=== PATIENT | female | born 2000 | race Hispanic/Latino ===

== ENCOUNTER 2020-05-04 20:02 | Emergency (ER) | payer BC, OTHER, SELFPAY ==
[2020-05-04 21:33] LABS: Urine Blood NEGATIVE (NEG); Urine Glucose NEGATIVE (NEG); Urine Protein NEGATIVE (NEG); Urine Specific Gravity 1.015 (1.005-1.030)
[2020-05-04] MEDS ORDERED: FAMOTIDINE 20 MG/2 ML VIAL IV ONE (21:48)
[2020-05-04] MEDS ORDERED: ONDANSETRON 4 MG/2 ML VIAL ONE (21:48)
[2020-05-04] MEDS ORDERED: NA CHLORIDE 0.9% 1,000 ML ONE (21:48)
[2020-05-04] MEDS ORDERED: MORPHINE 2 MG/ML SYR ONE ×2 (21:48→23:23)
[2020-05-04 22:07] LABS: Absolute Lymphocytes (CBC) 0.4 K/uL (0.7-4.9); Basophils % 0.1 % (0-1.3); Lymphocytes % 3.1 % (15.3-44.8); MPV 9.8 fL (7.6-11.3); RBC Red Blood Cell Count 4.25 M/uL (3.86-4.86)
[2020-05-04 22:22] LABS: ALT/SGPT 17 U/L (12-78); AST/SGOT 16 U/L (15-37); Albumin 4.2 g/dL (3.4-5.0); Alkaline Phosphatase 77 U/L (45-117); BUN Blood Urea Nitrogen 13 mg/dL (7-18); Bicarbonate 24 mmol/L (21-32); Bilirubin Direct 0.2 mg/dL (0-0.2); Glucose Level 94 mg/dL (74-106); Lipase 64 U/L (73-393); Potassium 3.7 mmol/L (3.5-5.1); Protein, Total 8.3 g/dL (6.4-8.2); Sodium Level 138 mmol/L (136-145)
[2020-05-04 22:54] LABS: Blood Morphology Comment NOT SEEN (NOT SEEN); Platelet Estimate ADEQ
--- NOTE | 2020-05-05 03:02 | EDPHYS ---
Physician Documentation [facility] Name: Sujata Kasper Age: 20 yrs Sex: Female : 2000 Arrival Date: 05/04/2020 Time: 20:09 Bed 23 Private MD: ED Physician James Lind HPI: 05/04 21:39 This 20 yrs old Female presents to ER via Ambulatory with complaints of mh7 Nausea, Diarrhea, Abdominal Pain, Fever. 21:39 The patient presents with abdominal pain in the periumbilical area. Onset: The mh7 symptoms/episode began/occurred this morning. The symptoms do not radiate. Associated signs and symptoms: Pertinent positives: nausea, vomiting, and diarrhea, nausea and vomiting, diarrhea, nausea, vomiting, Pertinent negatives: anorexia, blood in stools, chest pain, constipation, dysuria, fever, headache, hematuria, palpitations, shortness of breath, vaginal discharge, vomiting blood. The symptoms are described as crampy, intermittent, waxing/waning. Modifying factors: The symptoms are alleviated by nothing, the symptoms are aggravated by nothing. Severity of pain: At its worst the pain was moderate today, in the emergency department the pain has improved moderately. Ate food from a restaurant last night then started having symptoms this morning.. 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 - Social history:: Smoking status: Patient denies any tobacco usage or history of. ROS: 21:39 Constitutional: Negative for fever, chills, and weight loss, Eyes: Negative for injury, mh7 pain, redness, and discharge, ENT: Negative for injury, pain, and discharge, Neck: Negative for injury, pain, and swelling, Cardiovascular: Negative for chest pain, palpitations, and edema, Respiratory: Negative for shortness of breath, cough, wheezing, and pleuritic chest pain, Back: Negative for injury and pain, : Negative for injury, bleeding, discharge, and swelling, MS/Extremity: Negative for injury and deformity, Skin: Negative for injury, rash, and discoloration, Neuro: Negative for headache, weakness, numbness, tingling, and seizure, Psych: Negative for depression, anxiety, suicide ideation, homicidal ideation, and hallucinations, Allergy/Immunology: Negative for hives, rash, and allergies, Endocrine: Negative for neck swelling, polydipsia, polyuria, polyphagia, and marked weight changes, Hematologic/Lymphatic: Negative for swollen nodes, abnormal bleeding, and unusual bruising. Exam: 21:39 Constitutional: This is a well developed, well nourished patient who is awake, alert, mh7 and in no acute distress. Head/Face: Normocephalic, atraumatic. Eyes: Pupils equal round and reactive to light, extra-ocular motions intact. Lids and lashes normal. Conjunctiva and sclera are non-icteric and not injected. Cornea within normal limits. Periorbital areas with no swelling, redness, or edema. Neck: Trachea midline, no thyromegaly or masses palpated, and no cervical lymphadenopathy. Supple, full range of motion without nuchal rigidity, or vertebral point tenderness. No Meningismus. Chest/axilla: Normal chest wall appearance and motion. Nontender with no deformity. No lesions are appreciated. 21:39 Respiratory: Lungs have equal breath sounds bilaterally, clear to auscultation and percussion. No rales, rhonchi or wheezes noted. No increased work of breathing, no retractions or nasal flaring. 21:39 Back: No spinal tenderness. No costovertebral tenderness. Full range of motion. Skin: Warm, dry with normal turgor. Normal color with no rashes, no lesions, and no evidence of cellulitis. MS/ Extremity: Pulses equal, no cyanosis. Neurovascular intact. Full, normal range of motion. Neuro: Awake and alert, GCS 15, oriented to person, place, time, and situation. Cranial nerves II-XII grossly intact. Motor strength 5/5 in all extremities. Sensory grossly intact. Cerebellar exam normal. Normal gait. Psych: Awake, alert, with orientation to person, place and time. Behavior, mood, and affect are within normal limits. 21:39 Cardiovascular: Rate: tachycardic, Rhythm: regular, Pulses: no pulse deficits are appreciated, Heart sounds: normal, normal S1and S2, Edema: is not appreciated, JVD: is not appreciated. 21:39 Abdomen/GI: Inspection: abdomen appears normal, Bowel sounds: normal, in all quadrants, Palpation: moderate abdominal tenderness, in the umbilical area, left upper quadrant and left lower quadrant, rebound tenderness, is not appreciated, voluntary guarding, is not appreciated, involuntary guarding, is not appreciated, no appreciated organomegaly, Rectal exam: the exam is deferred, because of patient request, Indicators: McBurney's point is not tender, Robert's sign is negative, Rovsing's sign is negative, Obturator sign is negative, Psoas sign is negative, Liver: no appreciated palpable abnormalities, Hernia: not appreciated. Vital Signs: 20:44 BP 115 / 77; Pulse 116; Resp 18; Temp 99.6; Pulse Ox 100% on R/A; Weight 44.45 kg; iw Height 5 ft. 2 in. (157.48 cm); Pain 10/10; 22:45 BP 106 / 59; Pulse 91; Resp 18; Temp 98.1(O); Pulse Ox 100% on R/A; Pain 6/10; fu 03/08 00:30 BP 95 / 49; Pulse 83; Resp 16; Pulse Ox 99% on R/A; Pain 6/10; fu 00:30 BP 93 / 45; Pulse 76; Resp 16; Pulse Ox 98% ; Pain 0/10; fu 01:15 BP 100 / 57; Pulse 85; Resp 16; Pulse Ox 100% on R/A; Pain 0/10; fu 02:45 BP 102 / 58; Pulse 78; Resp 18; Pulse Ox 99% on R/A; Pain 0/10; fu 03:00 BP 102 / 61; Pulse 87; Resp 16; Pulse Ox 100% on R/A; Pain 0/10; fu 03/07 20:44 Body Mass Index 17.92 (44.45 kg, 157.48 cm) iw MDM: 03:00 Differential diagnosis: appendicitis, bowel obstruction, cholecystitis, Cholelithiasis, mh7 diverticulitis, Ectopic , gastritis, gastroesophageal reflux disease, non-specific abd pain, pancreatitis, Peptic Ulcer Disease, Ureterolithiasis, urinary tract infection. Data reviewed: vital signs, nurses notes, lab test result(s), CBC, electrolytes, urinalysis, UPT: negative radiologic studies, CT scan. Data interpreted: Pulse oximetry: on room air is 99 %. Interpretation: normal. Counseling: I had a detailed discussion with the patient and/or guardian regarding: the historical points, exam findings, and any diagnostic results supporting the discharge/admit diagnosis, lab results, radiology results, the need for outpatient follow up, to return to the emergency department if symptoms worsen or persist or if there are any questions or concerns that arise at home. Response to treatment: the patient's symptoms have resolved after treatment, the patient's blood pressure is in an acceptable range, mental status has returned to baseline, the patient no longer shows bradycardia, the patient is not short of breath, the patient is not tachycardic, the patient's pain is gone, the patient's temperature has normalized. 03:02 Patient medically screened. [facility] 05/04 21:15 Order name: Urine --Ancillary (enter results) [facility] 05/04 21:15 Order name: Urine Dipstick--Ancillary (enter results) [facility] 05/04 21:27 Order name: Basic Metabolic Panel [facility] 05/04 21:27 Order name: CBC with Diff [facility] 05/04 21:27 Order name: Hepatic Function [facility] 05/04 21:27 Order name: Lipase [facility] 05/04 21:34 Order name: Urine --Ancillary; Complete Time: 22:13 [facility] 05/04 21:34 Order name: Urine Dipstick-Ancillary; Complete Time: 22:13 [facility] 05/04 22:11 Order name: CBC with Automated Diff; Complete Time: 23:53 [facility] 05/04 22:13 Order name: CT Abd/Pelvis - IV Contrast Only [facility] 05/04 22:22 Order name: Basic Metabolic Panel; Complete Time: 23:53 [facility] 05/04 22:22 Order name: Liver (Hepatic) Function; Complete Time: 23:53 [facility] 05/04 22:22 Order name: Lipase; Complete Time: 23:53 [facility] 05/04 22:54 Order name: Manual Differential; Complete Time: 23:53 [facility] 05/04 21:13 Order name: Urine Dipstick-Ancillary (obtain specimen); Complete Time: 21:13 [facility] 05/04 21:13 Order name: Urine Test (obtain specimen); Complete Time: 21:13 [facility] 05/04 21:27 Order name: IV Saline Lock; Complete Time: 21:52 mh7 05/04 21:27 Order name: Labs collected and sent; Complete Time: 21:52 mh7 Administered Medications: 05/04 21:52 Drug: NS 0.9% 1000 ml Route: IV; Rate: 1000 ml; Site: left antecubital; fu 22:37 Follow up: Response: No adverse reaction; IV Intake: 1000ml fu :53 Drug: morphine 2 mg Route: IVP; Site: left antecubital; fu 22:37 Follow up: Response: Pain is decreased fu 21:53 Drug: Zofran (Ondansetron) 4 mg Route: IVP; Infused Over: 2 mins; Site: left fu antecubital; 22:37 Follow up: Response: Nausea is decreased fu :53 Drug: Pepcid 20 mg Route: IVP; Site: left antecubital; fu 22:38 Follow up: Response: No adverse reaction fu 23:10 Drug: morphine 2 mg Route: IVP; Site: left antecubital; fu 05/05 00:42 Follow up: Response: Pain is decreased fu 03:01 Drug: Cipro 500 mg Route: PO; fu 03:20 Follow up: Response: No adverse reaction fu Disposition: 05/05/20 03:02 Discharged to Home. Impression: Gastroenteritis. - Condition is Stable. - Discharge Instructions: Viral Gastroenteritis, Adult, [id number]. - Prescriptions for Zofran ODT 4 mg Oral tablet,disintegrating - place 1 tablet by TRANSLINGUAL route every 8 hours As needed; 6 tablet. Bentyl 20 mg Oral Tablet - take 1 tablet by ORAL route every 6 hours As needed; 20 tablet. Pepcid 20 mg Oral Tablet - take 1 tablet by ORAL route every 12 hours for 5 days; 10 tablet. Cipro 500 mg Oral Tablet - take 1 tablet by ORAL route every 12 hours for 5 days; 10 tablet. - Family Work Release, Medication Reconciliation Form, Thank You Letter, Antibiotic Education, Prescription Opioid Use form. - Follow up: Private Physician; When: 1 - 2 days; Reason: Worsening of condition, Recheck today's complaints, Continuance of care, Re-evaluation by your physician. Follow up: Grayson Montgomery MD; When: 1 - 2 days; Reason: If symptoms return, Worsening of condition. - Problem is new. - Symptoms have improved. Signatures: Dispatcher [employer] Rosalina Ruvalcaba, RN RN Maksim Rosenthal, RN James Cuevas MD MD [facility] Alfonso, Presley tt3 Corrections: (The following items were deleted from the chart) 03:28 03:02 05/05/2020 03:02 Discharged to Home. Impression: Gastroenteritis. Condition is fu Stable. Forms are Medication Reconciliation Form, Thank You Letter, Antibiotic Education, Prescription Opioid Use. Follow up: Private Physician; When: 1 - 2 days; Reason: Worsening of condition, Recheck today's complaints, Continuance of care, Re-evaluation by your physician. Follow up: Grayson Montgomery; When: 1 - 2 days; Reason: If symptoms return, Worsening of condition. Problem is new. Symptoms have improved. 7
--- NOTE | 2020-05-05 03:02 | ER ---
Nurse's Notes [facility] Name: Sujata Kasper Age: 20 yrs Sex: Female : 2000 Arrival Date: 05/04/2020 Time: 20:09 Bed 23 Private MD: Diagnosis: Gastroenteritis Presentation: 05/04 20:44 Chief complaint: Patient states: woke up this morning with mid abd pain and had iw diarrhea, vomited after eating soup, has just been very nauseous since this morning, is able to tolerate water, still having a lot of belly pain , worse when she walks. Coronavirus screen: fever, vomiting. Ebola Screen: Patient negative for fever greater than or equal to 101.5 degrees Fahrenheit, and additional compatible Ebola Virus Disease symptoms Patient denies exposure to infectious person. Patient denies travel to an Ebola-affected area in the 21 days before illness onset. No symptoms or risks identified at this time. Initial Sepsis Screen: Does the patient meet any 2 criteria? No. Patient's initial sepsis screen is negative. Does the patient have a suspected source of infection? No. Patient's initial sepsis screen is negative. Risk Assessment: Do you want to hurt yourself or someone else? Patient reports no desire to harm self or others. Onset of symptoms was May 04, 2020. 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 - Social history:: Smoking status: Patient denies any tobacco usage or history of. Screenin:01 Abuse screen: Denies threats or abuse. Nutritional screening: No deficits noted. fu Tuberculosis screening: No symptoms or risk factors identified. Fall Risk None identified. Assessment: 21:00 General: Appears uncomfortable, Behavior is calm, cooperative, appropriate for age, fu Denies fever, fatigue, chills. Pain: Complains of pain in left lower quadrant and left upper quadrant and umbilical area Pain currently is 8 out of 10 on a pain scale. Quality of pain is described as crampy, Pain began 1 day ago. 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 Gait is steady, Speech is normal, Facial symmetry appears normal. Cardiovascular: Denies chest pain. Respiratory: Respiratory effort is even, unlabored, Respiratory pattern is regular. GI: Abdomen is flat, Reports lower abdominal pain, upper abdominal pain, diarrhea, nausea, vomiting, since this morning. : No signs and/or symptoms were reported regarding the genitourinary system. EENT: No signs and/or symptoms were reported regarding the EENT system. 22:37 Reassessment: Patient and/or family updated on plan of care and expected duration. Pain fu level reassessed. Patient is alert, oriented x 3, equal unlabored respirations, skin warm/dry/pink. Patient states feeling better. Patient states symptoms have improved. 05/05 00:46 Reassessment: Patient appears in no apparent distress at this time. Patient and/or fu family updated on plan of care and expected duration. Pain level reassessed. Patient is alert, oriented x 3, equal unlabored respirations, skin warm/dry/pink. Patient denies pain at this time. Patient states symptoms have improved. 02:00 Reassessment: No changes from previously documented assessment. Patient and/or family fu updated on plan of care and expected duration. Pain level reassessed. Patient is alert, oriented x 3, equal unlabored respirations, skin warm/dry/pink. 02:58 Reassessment: Dr. Lind in patient room talking to patient. fu Vital Signs: 05/04 20:44 BP 115 / 77; Pulse 116; Resp 18; Temp 99.6; Pulse Ox 100% on R/A; Weight 44.45 kg; iw Height 5 ft. 2 in. (157.48 cm); Pain 10/10; 22:45 BP 106 / 59; Pulse 91; Resp 18; Temp 98.1(O); Pulse Ox 100% on R/A; Pain 6/10; fu 05/05 00:30 BP 95 / 49; Pulse 83; Resp 16; Pulse Ox 99% on R/A; Pain 6/10; fu 00:30 BP 93 / 45; Pulse 76; Resp 16; Pulse Ox 98% ; Pain 0/10; fu 01:15 BP 100 / 57; Pulse 85; Resp 16; Pulse Ox 100% on R/A; Pain 0/10; fu 02:45 BP 102 / 58; Pulse 78; Resp 18; Pulse Ox 99% on R/A; Pain 0/10; fu 03:00 BP 102 / 61; Pulse 87; Resp 16; Pulse Ox 100% on R/A; Pain 0/10; fu 0307 20:44 Body Mass Index 17.92 (44.45 kg, 157.48 cm) iw ED Course: 05/04 20:09 Patient arrived in ED. es 20:47 Triage completed. iw 20:47 Arm band placed on. iw 21:05 Maksim Sosa, SHANDA is Primary Nurse. fu 21:09 James Lind MD is Attending Physician. 7 21:35 Inserted saline lock: 20 gauge in left antecubital area, using aseptic technique. Blood fu collected. 21:52 Basic Metabolic Panel Sent. fu 21:52 CBC with Diff Sent. fu 21:52 Hepatic Function Sent. fu 21:52 Lipase Sent. fu 23:01 Patient has correct armband on for positive identification. Bed in low position. Call fu light in reach. Side rails up X 1. Pulse ox on. NIBP on. 05/05 00:42 Urine Dipstick--Ancillary (enter results) Sent. fu 00:42 Urine --Ancillary (enter results) Sent. fu 01:25 CT Abd/Pelvis - IV Contrast Only In Process Unspecified. EDMS 03:01 Grayson Montgomery MD is Referral Physician. [facility] 03:20 No provider procedures requiring assistance completed. IV discontinued, bleeding fu controlled, Pressure dressing applied. Administered Medications: 05/04 21:52 Drug: NS 0.9% 1000 ml Route: IV; Rate: 1000 ml; Site: left antecubital; fu 22:37 Follow up: Response: No adverse reaction; IV Intake: 1000ml fu 21:53 Drug: morphine 2 mg Route: IVP; Site: left antecubital; fu 22:37 Follow up: Response: Pain is decreased fu 21:53 Drug: Zofran (Ondansetron) 4 mg Route: IVP; Infused Over: 2 mins; Site: left fu antecubital; 22:37 Follow up: Response: Nausea is decreased fu 21:53 Drug: Pepcid 20 mg Route: IVP; Site: left antecubital; fu 22:38 Follow up: Response: No adverse reaction fu 23:10 Drug: morphine 2 mg Route: IVP; Site: left antecubital; fu 0308 00:42 Follow up: Response: Pain is decreased fu 03:01 Drug: Cipro 500 mg Route: PO; fu 03:20 Follow up: Response: No adverse reaction fu Intake: 05/04 22:37 IV: 1000ml; Total: 1000ml. fu Outcome: 05/05 03:02 Discharge ordered by mh7 03:20 Discharged to home ambulatory, with friend. fu 03:20 Condition: stable 03:20 Discharge instructions given to patient, Instructed on discharge instructions, follow up and referral plans. Demonstrated understanding of instructions, follow-up care, medications, Prescriptions given X 4. 03:28 Patient left the ED. fu Signatures: Dispatcher [employer] Yesenia Allan Irene, RN RN iw Umadhay, Felix, RN RN fu Holmes, Maurice, MD MD mh7
[2020-05-05] MEDS ORDERED: CIPROFLOXACIN HCL 500 MG TAB ONE (03:16)
[2020-05-05 03:38] VITALS: TEMP 98.1
[2020-05-05 03:44] VITALS: BP 102/61; O2SAT 100
--- NOTE | 2020-05-05 12:24 | RAD REPORT ---
EXAM DESCRIPTION: CT - Abdomen Pelvis W Contrast - 05/05/2020 5:04 am CLINICAL HISTORY: The patient is 20 years old and is Female; Abd pain;Nausea / vomiting TECHNIQUE: Axial computed tomography images of the abdomen and pelvis with intravenous contrast. S agittal and coronal reformatted images were created and reviewed. This CT exam was performed using one or more of the following dose reduction techniques: automated exposure control, adjustment of t he mA and/or kV according to patient size, and/or use of iterative reconstruction technique. DLP: 645 mGy*cm COMPARISON: None. FINDINGS: LUNG BASES: Lung bases are clear. HEART: Visualized heart is normal. ABDOMEN: LIVER: Unremarkable. No mass. GALLBLADDER AND BILE DUCTS: Unremarkable. No calcified stones. No ductal dilation. PANCREAS: Unremarkable. No mass. No ductal dilation. SPLEEN: Unremarkable. No splenomegaly. ADRENALS: Unremarkable. No mass. KIDNEYS AND URETERS: Unremarkable. No solid mass. No hydronephrosis. STOMACH AND BOWEL: Unremarkable. No obstruction. No mucosal thickening. PELVIS: APPENDIX: No findings to suggest acute appendicitis. BLADDER: Bladder is decompressed. REPRODUCTIVE: Prominent lower uterine segment left cervix. ABDOMEN and PELVIS: INTRAPERITONEAL SPACE: Right ovarian corpus luteal cyst measuring 3.4 cm. Moderate amount of free p elvic fluid, likely physiologic. No free air. BONES/JOINTS: No acute fracture. No dislocation. SOFT TISSUES: Unremarkable. VASCULATURE: Unremarkable. No abdominal aortic aneurysm. LYMPH NODES: Unremarkable. No enlarged lymph nodes. IMPRESSION: 1. No acute abdominal or pelvic abnormality. 2. Right ovarian corpus luteal cyst measuring 3.4 cm. Moderate amount of free pelvic fluid, likely physiologic. Recommend pelvic US f/u in 6-12 wks. If resolved/smaller, no further f/u is needed. If s table/larger, continue pelvic US f/u or consider pelvic MRI w/IV contrast. Reference: US recommendations based on Radiology 2010 Sep;256(3):943-54; CT/MR recommendations based on J Am Arun Radiol 2013;10:675-681. Electronically signed by: Nikko Bone DO 05/05/2020 1:47 AM CALL CIRCUIT WORKER Due to temporary technical issues with the PACS/Fluency reporting system, reports are being signed by the in house radiologists without review as a courtesy to insure prompt reporting. The interpreting radiologist is fully responsible for the content of the report.
== END 2020-05-05 03:28 | disposition home or self-care (01) ==
LOC: ER 20:02
DX: K52.9 Noninfective gastroenteritis and colitis, unspecified (principal)
CPT/HCPCS: 36415; 74177; 80048; 80076; 81003; 81025; 83690; 85025; 96374; 96375; 99284; J2270; J2405; J7030; Q9967

== ENCOUNTER 2020-08-04 21:17 | Emergency (ER) | payer SELFPAY ==
[2020-08-04 21:57] LABS: Urine Blood 3+ (Negative); Urine Glucose Negative (Negative); Urine Protein 3+ (Negative); Urine Specific Gravity >=1.030 (1.005-1.030)
--- NOTE | 2020-08-04 22:01 | ER ---
Nurse's Notes [facility] Name: Sujata Kasper Age: 20 yrs Sex: Female : 2000 Arrival Date: 08/04/2020 Time: 21:21 Bed Waiting Private MD: Diagnosis: Urinary tract infection, site not specified Presentation: 08/04 21:42 Chief complaint: Patient states: Suprapubic pain, burning with urination, urinary ca1 urgency and frequency x 3 days. Denies fever. Coronavirus screen: Client denies travel out of the [place] in the last 14 days. At this time, the client does not indicate any symptoms associated with coronavirus-19. Ebola Screen: Patient negative for fever greater than or equal to 101.5 degrees Fahrenheit, and additional compatible Ebola Virus Disease symptoms Patient denies exposure to infectious person. Patient denies travel to an Ebola-affected area in the 21 days before illness onset. No symptoms or risks identified at this time. Initial Sepsis Screen: Does the patient meet any 2 criteria? No. Patient's initial sepsis screen is negative. Does the patient have a suspected source of infection? No. Patient's initial sepsis screen is negative. Risk Assessment: Do you want to hurt yourself or someone else? Patient reports no desire to harm self or others. Onset of symptoms was August 04, 2020. 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 Flu vaccine is up to date. - Social history:: Smoking status: Patient denies any tobacco usage or history of. Screenin:08 Abuse screen: Denies threats or abuse. Denies injuries from another. Nutritional ss screening: No deficits noted. Tuberculosis screening: Never had TB. Fall Risk None identified. Assessment: 22:08 General: Appears in no apparent distress. comfortable, Behavior is calm, cooperative. ss Pain: Complains of pain in suprapubic area Pain currently is 7 out of 10 on a pain scale. Neuro: Level of Consciousness is awake, alert, obeys commands. Respiratory: Respiratory effort is even, unlabored. GI: Bowel sounds present X 4 quads. Abdomen is tender to palpation in suprapubic area Patient currently denies diarrhea, nausea, vomiting. : Reports burning with urination, since x3 days. Derm: Skin is intact, is healthy with good turgor, Skin is dry, Skin is pink, warm \T\ dry. normal. Vital Signs: 21:42 BP 121 / 85; Pulse 63; Resp 16 S; Temp 97.9(TE); Pulse Ox 98% on R/A; Weight 44.45 kg; ca1 Height 5 ft. 2 in. (157.48 cm) (R); Pain 7/10; 21:42 Body Mass Index 17.92 (44.45 kg, 157.48 cm) ca1 ED Course: 21:21 Patient arrived in ED. bp1 21:30 [facility]C [facility]. kb 21:30 Avi Iraheta MD is Attending Physician. kb 21:44 Triage completed. ca1 21:45 Arm band placed on right wrist. ca1 21:56 Urine Microscopic Only Sent. ca1 22:01 Brenda Saleh, SHANDA is Primary Nurse. ss 22:08 Patient has correct armband on for positive identification. Bed in low position. Call ss light in reach. 22:08 No provider procedures requiring assistance completed. Patient did not have IV access ss during this emergency room visit. Administered Medications: 22:01 Drug: Macrobid (nitrofurantoin) 100 mg Route: PO; ss 22:07 Follow up: Response: No adverse reaction; Medication administered at discharge. ss 22:02 Drug: Pyridium (phenazopyridine) 200 mg Route: PO; ss 22:08 Follow up: Response: Medication administered at discharge. ss Outcome: 22:00 Discharge ordered by . kb 22:08 Discharged to home ambulatory. ss 22:08 Condition: good 22:08 Discharge instructions given to patient, Instructed on discharge instructions, follow up and referral plans. medication usage, Demonstrated understanding of instructions, follow-up care, medications, Prescriptions given X 2. 22:09 Patient left the ED. ss Addendum: 08/08/2020 07:40 Addendum: Culture Results: Positive urine culture. No further action required. Bacteria e b sensitive to prescribed antibiotic. Signatures: Sera Iglesias, DAMION CORREA-Brenda Hernandez, SHANDA RN ss Chirsty Carpio Cheryl, RN RN ca1 Lo Donnelly
--- NOTE | 2020-08-04 22:01 | EDPHYS ---
Physician Documentation [facility] Name: Sujata Kasper Age: 20 yrs Sex: Female : 2000 Arrival Date: 08/04/2020 Time: 21:21 Bed Waiting Private MD: ED Physician Avi Iraheta HPI: 08/04 22:05 This 20 yrs old Female presents to ER via Ambulatory with complaints of kb Abdominal Pain, Pain With Urination. 22:05 The patient has not recently seen a physician. kb 22:05 The patient presents with urinary symptoms, dysuria, frequency, urgency. Onset: The kb symptoms/episode began/occurred 3 day(s) ago. Modifying factors: The symptoms are alleviated by nothing, the symptoms are aggravated by urinating. Associated signs and symptoms: Pertinent positives: dysuria, urinary frequency. Severity of symptoms: At their worst the symptoms were moderate, in the emergency department the symptoms are unchanged. The patient has not experienced similar symptoms in the past. Pt reports burning with urination, bladder discomfort, frequency and urgency that started 3 days ago. Denies fever. 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 Flu vaccine is up to date. - Social history:: Smoking status: Patient denies any tobacco usage or history of. ROS: 22:08 Constitutional: Negative for fever, chills, and weight loss. kb 22:08 Abdomen/GI: Positive for abdominal pain, of the suprapubic area. 22:08 : Positive for urinary symptoms, urinary frequency, small amounts, burning with urination. 22:08 All other systems are negative. Exam: 22:08 Constitutional: This is a well developed, well nourished patient who is awake, alert, kb and in no acute distress. Head/Face: Normocephalic, atraumatic. ENT: Moist Mucous membranes Respiratory: Respirations even and unlabored. No increased work of breathing, no retractions or nasal flaring. Abdomen/GI: Soft, non-tender. No distention Skin: Warm, dry with normal turgor. Normal color. MS/ Extremity: Pulses equal, no cyanosis. Neurovascular intact. Full, normal range of motion. Neuro: Awake and alert, GCS 15, oriented to person, place, time, and situation. Moves all extremities. Normal gait. Psych: Awake, alert, with orientation to person, place and time. Behavior, mood, and affect are within normal limits. Vital Signs: 21:42 BP 121 / 85; Pulse 63; Resp 16 S; Temp 97.9(TE); Pulse Ox 98% on R/A; Weight 44.45 kg; ca1 Height 5 ft. 2 in. (157.48 cm) (R); Pain 7/10; 21:42 Body Mass Index 17.92 (44.45 kg, 157.48 cm) ca1 MDM: 21:45 Patient medically screened. kb 22:08 Data reviewed: vital signs, nurses notes. Data interpreted: Pulse oximetry: on room air kb is 98 %. Interpretation: normal. Counseling: I had a detailed discussion with the patient and/or guardian regarding: the historical points, exam findings, and any diagnostic results supporting the discharge/admit diagnosis, lab results, the need for outpatient follow up, a family practitioner, to return to the emergency department if symptoms worsen or persist or if there are any questions or concerns that arise at home. 08/04 21:30 Order name: Urine Microscopic Only kb 08/04 21:57 Order name: Urine --Ancillary (enter results) mw2 08/04 21:30 Order name: Urine Test (obtain specimen); Complete Time: 21:56 kb 08/04 21:57 Order name: Urine Dipstick-Ancillary; Complete Time: 21:59 EDMS 08/04 21:30 Order name: Urine Dipstick-Ancillary (obtain specimen); Complete Time: 21:56 kb Administered Medications: 22:01 Drug: Macrobid (nitrofurantoin) 100 mg Route: PO; ss 22:07 Follow up: Response: No adverse reaction; Medication administered at discharge. ss 22:02 Drug: Pyridium (phenazopyridine) 200 mg Route: PO; ss 22:08 Follow up: Response: Medication administered at discharge. Disposition: 08/05 07:53 Co-signature as Attending Physician, Avi Iraheta MD I agree with the assessment and mary plan of care. Disposition: 08/04/20 22:00 Discharged to Home. Impression: Urinary tract infection, site not specified. - Condition is Stable. - Discharge Instructions: Urinary Tract Infection, Adult, [id number]. - Prescriptions for Pyridium 200 mg Oral Tablet - take 1 tablet by ORAL route every 8 hours for 3 days; 9 tablet. Macrobid 100 mg Oral Capsule - take 1 capsule by ORAL route every 12 hours for 10 days; 20 capsule. - Medication Reconciliation Form, Thank You Letter, Antibiotic Education, Prescription Opioid Use form. - Follow up: Emergency Department; When: As needed; Reason: Worsening of condition. Follow up: Private Physician; When: 2 - 3 days; Reason: Recheck today's complaints, Continuance of care, Re-evaluation by your physician. Signatures: Dispatcher [employer] EDSera Mckenzie, FISH PACKER-C FISH PACKER-Avi Peters MD MD cha Smirch, Shelby, RN RN ss Tricia Reyes RN RN [facility] Corrections: (The following items were deleted from the chart) 08/04 22:09 22:00 08/04/2020 22:00 Discharged to Home. Impression: Urinary tract infection, site ss not specified. Condition is Stable. Forms are Medication Reconciliation Form, Thank You Letter, Antibiotic Education, Prescription Opioid Use. Follow up: Emergency Department; When: As needed; Reason: Worsening of condition. Follow up: Private Physician; When: 2 - 3 days; Reason: Recheck today's complaints, Continuance of care, Re-evaluation by your physician. kb
[2020-08-04 22:13] LABS: Urine Specific Gravity/Preg >1.030 (1.005-1.030)
[2020-08-04 22:18] LABS: Urine Bacteria <20 /HPF (<20); Urine Mucus 1+ /HPF (NONE SEEN)
[2020-08-04] MEDS ORDERED: NITROFURAN MACRO 100 MG CAP PO ONE (22:23)
[2020-08-04] MEDS ORDERED: PHENAZOPYRIDINE 100MG TAB PO ONE (22:23)
[2020-08-04 22:24] VITALS: BP 121/85; TEMP 97.9; O2SAT 98
== END 2020-08-04 22:09 | disposition home or self-care (01) ==
LOC: ER 21:17
DX: N39.0 Urinary tract infection, site not specified (principal)
CPT/HCPCS: 81003; 81015; 81025; 87077; 87086; 87088; 87186; 99283

== ENCOUNTER 2022-03-21 15:17 | Emergency (ER) | payer SELFPAY ==
[2022-03-21] MEDS ORDERED: IBUPROFEN 400 MG TAB ONE (16:34)
--- NOTE | 2022-03-21 17:48 | RAD REPORT ---
EXAM DESCRIPTION: RAD - Knee Left 3 View - 03/21/2022 5:43 pm CLINICAL HISTORY: PAIN COMPARISON: No comparisons FINDINGS: Small suprapatellar joint effusion. No fracture or dislocation seen. Nonemergent MRI knee followup would be suggested.
--- NOTE | 2022-03-21 18:12 | EDPHYS ---
Physician Documentation [facility] Name: Sujata Kasper Age: 22 yrs Sex: Female : 2000 Arrival Date: 03/21/2022 Time: 15:20 Bed IW1 Private MD: ED Physician Mason Chapman HPI: 03/21 16:30 This 22 yrs old Female presents to ER via Ambulatory with complaints of Knee cp Pain - swelling. 16:30 The patient presents with pain, that is acute, swelling, tenderness. The complaints cp affect the left knee. Context: the patient can fully bear weight, the patient is able to ambulate, with moderate difficulty, Problem is a result from a previous injury: No. Onset: The symptoms/episode began/occurred yesterday, and became worse today. Modifying factors: the symptoms are aggravated by weight bearing. Associated signs and symptoms: Pertinent negatives calf tenderness, fever, warmth. Treatment prior to arrival includes: no previous treatment. Patient reports left knee pain since yesterday while attending wedding. Wore heels and was on feet for long period. No specific injury occurred and no previous injuries to knee. 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 - Social history:: Smoking status: Patient denies any tobacco usage or history of. ROS: 16:35 MS/extremity: Positive for pain, swelling, tenderness, of the left knee, Negative for cp injury or acute deformity, decreased range of motion, warmth. 16:35 Constitutional: Negative for body aches, chills, fever. cp 16:35 Neck: Negative for pain with movement, pain at rest. 16:35 Respiratory: Negative for cough, shortness of breath, wheezing. 16:35 Back: Negative for pain at rest, pain with movement. 16:35 Neuro: Negative for altered mental status, headache, numbness, tingling, weakness. 16:35 All other systems are negative. Exam: 16:40 Constitutional: The patient appears in no acute distress, alert, awake, non-toxic, well cp developed, well nourished. 16:40 Head/Face: Normocephalic, atraumatic. cp 16:40 Cardiovascular: Rate: normal, Pulses: Pulses are 2+ in left dorsalis pedis artery. cp 16:40 Respiratory: the patient does not display signs of respiratory distress, Respirations: cp normal, no use of accessory muscles, no retractions, labored breathing, is not present. 16:40 Musculoskeletal/extremity: Extremities: noted in the left knee: mild anterior infrapatellar swelling, tenderness noted medial and lateral joint line, no ROM restriction, overlying skin warm and dry, ROM: limited passive range of motion due to pain, in the left knee, Weight bearing: able to fully bear weight. Vital Signs: 16:06 BP 119 / 76; Pulse 76; Resp 16; Temp 97.9; Pulse Ox 100% ; Weight 46.27 kg; Height 5 vg1 ft. 2 in. (157.48 cm); Pain 6/10; 18:27 BP 115 / 72; Pulse 65; Resp 16; Pulse Ox 100% ; vg1 16:06 Body Mass Index 18.66 (46.27 kg, 157.48 cm) vg1 MDM: 16:13 Patient medically screened. cp 17:00 Differential diagnosis: closed fracture, tendonitis, effusion, less likely septic cp joint, gout. 18:10 Data reviewed: vital signs, nurses notes, radiologic studies, plain films. cp 18:10 I considered the following discharge prescriptions or medication management in the emergency department Medications were administered in the Emergency Department. See MAR. Test considered but Not performed: MRI: left knee. Counseling: I had a detailed discussion with the patient and/or guardian regarding: the historical points, exam findings, and any diagnostic results supporting the discharge/admit diagnosis, radiology results, the need for outpatient follow up, for definitive care, a orthopedic surgeon, to return to the emergency department if symptoms worsen or persist or if there are any questions or concerns that arise at home. Response to treatment: the patient's symptoms have mildly improved after treatment, and as a result, I will discharge patient. 03/21 16:23 Order name: XRAY Knee LEFT 3 view; Complete Time: 18:01 03/21 18:05 Order name: Ramon wrap-joint; Complete Time: 18:17 cp 03/21 18:05 Order name: Crutches; Complete Time: 18:17 cp Administered Medications: 16:40 Drug: Ibuprofen 400 mg Route: PO; jl7 18:17 Follow up: Response: No adverse reaction; Marked relief of symptoms vg1 Disposition Summary: 03/21/22 18:11 Discharge Ordered Location: Home cp Problem: new cp Symptoms: have improved cp Condition: Stable cp Diagnosis - Pain in left knee cp Followup: cp - With: Elmer Flood MD - When: 2 - 3 days - Reason: Recheck today's complaints Discharge Instructions: - Discharge Summary Sheet cp - Elastic Bandage and RICE Therapy cp - How to Use a Knee Brace cp - Acute Knee Pain, Adult cp - Form - Excuse from Work, School, or Physical Activity cp Forms: - Medication Reconciliation Form cp - Thank You Letter cp - Antibiotic Education cp - Prescription Opioid Use cp - Work release form vg1 Prescriptions: - Ibuprofen 800 mg Oral Tablet - take 0.5 tablet by ORAL route every 8 hours As needed take with food; 30 cp tablet; Refills: 0, Product Selection Permitted Addendum: 03/23/2022 01:06 Co-signature as Attending Physician, Mason Chapman MD I reviewed the patient's care r n provided by the Advanced Practice Provider and agree with the diagnosis and treatment plan. Signatures: Dispatcher [employer] Mason Jeter MD MD rn Page, Corey, PA PA cp Leal, Jahala, RN RN jl7 Della Krause RN RN vg1
--- NOTE | 2022-03-21 18:12 | ER ---
Nurse's Notes [facility] Name: Sujata Kasper Age: 22 yrs Sex: Female : 2000 Arrival Date: 03/21/2022 Time: 15:20 Bed IW1 Private MD: Diagnosis: Pain in left knee Presentation: 03/21 16:06 Chief complaint: Patient states: was at a wedding last night, stated "I think it may vg1 have been my heels" but was standing most of the day and dancing, towards the end of the night noticed swelling to Left Knee and heard a "pop". Coronavirus screen: Vaccine status: Patient reports receiving the 2nd dose of the covid vaccine. Client denies travel out of the [place] in the last 14 days. Ebola Screen: Patient negative for fever greater than or equal to 101.5 degrees Fahrenheit, and additional compatible Ebola Virus Disease symptoms Patient denies exposure to infectious person. Initial Sepsis Screen: Does the patient meet any 2 criteria? No. Patient's initial sepsis screen is negative. Does the patient have a suspected source of infection? No. Patient's initial sepsis screen is negative. Risk Assessment: Do you want to hurt yourself or someone else? Patient reports no desire to harm self or others. Onset of symptoms was March 20, 2022. 16:06 Method Of Arrival: Ambulatory vg1 16:06 Acuity: JAMMIE 4 vg1 Triage Assessment: 16:08 General: Appears uncomfortable, Behavior is calm, cooperative. Pain: Complains of pain vg1 in left knee Pain currently is 6 out of 10 on a pain scale. Aggravated by weight bearing. Cardiovascular: Patient's skin is warm and dry. Musculoskeletal: Swelling present in left knee. 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 - Social history:: Smoking status: Patient denies any tobacco usage or history of. Screenin:27 [facility] ED Fall Risk Assessment (Adult) History of falling in the last 3 months, vg1 including since admission No falls in past 3 months (0 pts) Confusion or Disorientation No (0 pts) Intoxicated or Sedated No (0 pts) Impaired Gait No (0 pts) Mobility Assist Device Used No (0 pt) Altered Elimination No (0 pt) Score/Fall Risk Level 0 - 2 = Low Risk. Abuse screen: Denies threats or abuse. Denies injuries from another. Nutritional screening: No deficits noted. Tuberculosis screening: No symptoms or risk factors identified. Vital Signs: 16:06 BP 119 / 76; Pulse 76; Resp 16; Temp 97.9; Pulse Ox 100% ; Weight 46.27 kg; Height 5 vg1 ft. 2 in. (157.48 cm); Pain 6/10; 18:27 BP 115 / 72; Pulse 65; Resp 16; Pulse Ox 100% ; vg1 16:06 Body Mass Index 18.66 (46.27 kg, 157.48 cm) vg1 ED Course: 15:20 Patient arrived in ED. as 15:28 Avi Carroll PA is PHCP. cp 15:28 Mason Chapman MD is Attending Physician. cp 16:08 Triage completed. vg1 16:08 Arm band placed on. vg1 17:44 XRAY Knee LEFT 3 view In Process Unspecified. EDMS 18:11 Elmer Flood MD is Referral Physician. cp 18:27 Patient has correct armband on for positive identification. vg1 18:27 No provider procedures requiring assistance completed. Patient did not have IV access vg1 during this emergency room visit. Administered Medications: 16:40 Drug: Ibuprofen 400 mg Route: PO; jl7 18:17 Follow up: Response: No adverse reaction; Marked relief of symptoms vg1 Medication: 18:27 VIS not applicable for this client. vg1 Outcome: 18:11 Discharge ordered by . cp 18:27 Discharged to home ambulatory, with crutches. vg1 18:27 Condition: good 18:27 Discharge instructions given to patient, Instructed on discharge instructions, follow up and referral plans. medication usage, crutch walking, Demonstrated understanding of instructions, follow-up care, medications, crutch walking, Prescriptions given X 1. 18:28 Patient left the ED. vg1 Signatures: Dispatcher [employer] EDMS Dorcas Gunter as Avi Carroll PA PA cp Leal, Jahala, RN RN jl7 Della Krause RN RN vg1
[2022-03-21 19:27] VITALS: TEMP 97.9; O2SAT 100
[2022-03-21 19:28] VITALS: BP 115/72
== END 2022-03-21 18:28 | disposition home or self-care (01) ==
LOC: ER 15:17
DX: M25.562 Pain in left knee (principal)
CPT/HCPCS: 99284